=== PATIENT | female | born 1950 | race Caucasian/White ===

== ENCOUNTER 2021-06-26 14:12 | Outpatient (CLI) | payer MEDICARE, OTHER ==
[~2021-06-26] VITALS: Ht 160 cm; Wt 105.9 kg
[~2021-06-26 14:12] MED LIST: ALBUTEROL 90 MCG/ACT 8GM HFA INHALER INH PRN; ALBUTEROL SULFATE 2.5 MG/0.5 ML INH NEB SOLN INH PRN; EPINEPHrine INJ 1 MG/ML 1ML AMP IM PRN; NS 1,000 ML IV SCH; [UNRECOGNIZED DRUG - CODE] PO; diphenhydrAMINE 50MG/ML VIAL (J1200) IV PRN; methylPREDNISolone 125MG 2ML VIAL IV PRN
[2021-06-26 15:00] VITALS: BP 152/80
[2021-06-26] MEDS ORDERED: SOTROVIMAB 500 MG in NS 100 ML IV ONE (15:30)
[2021-06-26 15:35] VITALS: BP 148/78
[2021-06-26 16:35] VITALS: BP 136/77
== END 2021-06-26 16:35 | disposition home or self-care (01) ==
LOC: M OPCLI4PR 14:12
PROVIDERS: ATTEND Family Medicine
DX: U07.1 COVID-19 (principal); Z88.0 Allergy status to penicillin